=== PATIENT | male | born 1980 | race Caucasian/White ===

== ENCOUNTER 2020-10-30 21:47 | Emergency (ER) | payer OTHER ==
[~2020-10-30] VITALS: Ht 165.1 cm; Wt 81.7 kg
[2020-10-31] MEDS ORDERED: BACTRIM DS TAB1 EACH PO (02:28)
[2020-10-31 02:35] VITALS: BP 125/90
== END 2020-10-31 02:35 | disposition home or self-care (01) ==
LOC: M.ERS 21:47
DX: L72.8 Other follicular cysts of the skin and subcutaneous tissue (principal); R22.2 Localized swelling, mass and lump, trunk; F17.210 Nicotine dependence, cigarettes, uncomplicated